=== PATIENT | male | born 1990 | race African-American/Black ===

== ENCOUNTER 2016-06-25 17:44 | Outpatient (CLI) | payer OTHER ==
[2016-06-25 20:30] LABS: ALT (SGPT) 40 U/L (0-55); AST (SGOT) 27 U/L (5-34); Alkaline Phosphatase 64 U/L (40-150); Anion Gap 15 mmol/L (10-20); BUN (Urea Nitrogen) 15 mg/dL (8.9-20.6); Bilirubin, Total 0.7 mg/dL (0.2-1.2); Calc. Creatinine Clearance 0 mL/min (70-130); Calcium 9.6 mg/dL (7.8-10.44); Carbon Dioxide 23 mmol/L (22-29); Chloride 106 mmol/L (98-107); Estimated GFR-MDRD Greater than 90; Globulin 3.3 g/dL (2.4-3.5); LDL Cholesterol, Calculated 166 mg/dL; Protein, Total 7.9 g/dL (6.0-8.3)
[2016-06-25 20:43] LABS: Hemoglobin A1c 6.1 % (4.0-6.0)
[2016-06-25 20:53] LABS: #Basophils 0.2 thou/uL (0.0-0.2); #Eosinphils 0.1 thou/uL (0.0-0.7); #Lymphocytes 2.3 thou/uL (1.20-3.40); #Monocytes 0.4 thou/uL (0.11-0.59); #Neutrophils 1.9 thou/uL (1.40-6.50); %Basophils 3.4 % (0.0-1.0); %Eosinophils 1.2 % (0.0-10.0); %Lymphocytes 46.8 % (21.0-51.0); %Monocytes 8.2 % (0.0-10.0); Mean Platelet Volume 7.6 fL (7.4-10.4); Red Blood Cell (RBC) Count 6.08 mill/uL (4.70-6.10); White Blood Cell (WBC) Count 4.8 thou/uL (4.8-10.8)
== END 2016-06-25 17:45 | disposition home or self-care (01) ==
LOC: NAV SJFMSP 17:44
PROVIDERS: ATTEND Family Medicine
DX: L65.9 Nonscarring hair loss, unspecified (principal); E78.5 Hyperlipidemia, unspecified; R73.09 Other abnormal glucose; R71.8 Other abnormality of red blood cells; R74.8 Abnormal levels of other serum enzymes
CPT/HCPCS: 80053; 80061; 80074; 83036; 84439; 84443; 85025

== ENCOUNTER 2016-10-17 16:10 | Emergency (ER) | payer OTHER, SELFPAY ==
[2016-10-17] MEDS ORDERED: traMADol HCl 50 MG TAB ONE (16:31)
--- NOTE | 2016-10-17 16:49 | RAD ---
RIGHT ANKLE THREE VIEWS: History: Injury. Pain. Patient fell off a horse. FINDINGS: Minimally displaced lateral malleolar fracture. Associated soft tissue swelling. IMPRESSION: Lateral malleolus fracture with associated soft tissue swelling. POS: [facility]
--- NOTE | 2016-10-17 16:50 | RAD ---
SACRUM THREE VIEWS: History: Injury. Patient fell off a horse. Post-traumatic pain. Comparison: None. FINDINGS: Sacral ala appear to be preserved. No obvious sacral fracture. IMPRESSION: No definite fracture. POS: [facility]
== END 2016-10-17 17:12 | disposition home or self-care (01) ==
LOC: NAV ERS 16:10
DX: S82.61XA Displaced fracture of lateral malleolus of right fibula, initial encounter for closed fracture (principal); S30.0XXA Contusion of lower back and pelvis, initial encounter; V80.010A Animal-rider injured by fall from or being thrown from horse in noncollision accident, initial encounter
CPT/HCPCS: 72220

== ENCOUNTER 2020-03-20 22:24 | Emergency (ER) | payer OTHER, SELFPAY ==
[2020-03-20] MEDS ORDERED: Ketorolac Tromethamine 30 MG/ML VIAL ONE (22:38)
[2020-03-20 22:59] LABS: Hemoglobin 13.6 g/dL (14.0-18.0); Mean Corpuscular HGB CONC 30.4 g/dL (32.0-36.0); Mean Corpuscular Hemoglobin 24.3 pg (27.0-31.0); Mean Corpuscular Volume 79.9 fL (78.0-98.0); Mean Platelet Volume 9.7 fL (7.4-10.4); Platelet Count 221 thou/uL (130-400); RBC Distribution Width 13.7 % (11.5-14.5); White Blood Cell (WBC) Count 7.5 thou/uL (4.8-10.8)
[2020-03-20 23:08] LABS: Anion Gap 18 mmol/L (10-20); BUN (Urea Nitrogen) 14 mg/dL (8.9-20.6); Band 3 % (5-11); Calc. Creatinine Clearance 0 mL/min (70-130); Calcium 9.5 mg/dL (7.8-10.44); Carbon Dioxide 26 mmol/L (22-29); Chloride 101 mmol/L (98-107); Eosinophils 4 % (0-10); Estimated GFR-MDRD Greater than 90; Glucose 95 mg/dL (70-105); Lymphocytes 57 % (21-51); MDiff Complete? YES; Monocytes 2 % (0-10); Neutrophil 34 % (42-75); Platelet Morphology Comment Appears Adequate; Potassium 3.9 mmol/L (3.5-5.1); RBC Morphology Normal; Sodium 141 mmol/L (136-145)
--- NOTE | 2020-03-21 07:05 | RAD ---
PA AND LATERAL CHEST: Date: 03/20/2020 HISTORY: Dyspnea. FINDINGS: Heart size and mediastinum are within normal limits. Lungs are clear of infiltrates. No significant b crescencio findings. IMPRESSION: No active intrathoracic disease. POS: [facility]
== END 2020-03-20 23:31 | disposition home or self-care (01) ==
LOC: NAV ERS 22:24
DX: S29.012A Strain of muscle and tendon of back wall of thorax, initial encounter (principal); X50.1XXA Overexertion from prolonged static or awkward postures, initial encounter; Y93.54 Activity, bowling
CPT/HCPCS: 71046; 80048; 85025; 85379; 96374; J1885